=== PATIENT | male | born 1990 | race Caucasian/White ===

== ENCOUNTER 2018-01-03 23:47 | Emergency (ER) | payer MEDICAID, OTHER ==
[~2018-01-03] VITALS: Ht 172.7 cm; Wt 81.6 kg
[2018-01-03 23:50] VITALS: BP 146/107
[2018-01-03] MEDS ORDERED: NKM (23:53)
[2018-01-04] MEDS ORDERED: CORTISPORIN EAR10 ML RIGHT EAR (00:20)
[2018-01-04] MEDS ORDERED: AUGMENTIN 875-1 EAC1 ORAL (00:20)
--- NOTE | 2018-01-04 00:20 | Emergency Room Report ---
History of Present Illness General Chief Complaint: Earache Source: Patient Present Illness HPI Is a 27-year-old male with significant past medical history. He presents chief complaint right ear pain. Has been on and off problem for couple months. He came in today because increasing pain for the last couple days. No runny nose or congestion. No fever chills. Decreased hearing. Pain is 7 out of 10. Allergies: Coded Allergies: No Known Allergies (Unverified , 01/03/18) Patient History Past Medical History: see triage record, old chart reviewed Past Surgical History: none Pertinent Family History: none Social History: Denies: smoking Immunizations: other Reviewed Nursing Documentation: PMH: Agreed; PSxH: Agreed Nursing Documentation-PMH Past Medical History: No Stated History Review of Systems Eye: Denies: eye pain, blurred vision ENT: Reports: ear pain; Denies: nose congestion, throat swelling Respiratory: Denies: cough, shortness of breath Cardiovascular: Denies: chest pain, palpitations Gastrointestinal: Denies: abdominal pain, diarrhea, nausea, vomiting Musculoskeletal: Denies: back pain, joint pain Skin: Denies: rash Neurological: Denies: headache, numbness Endocrine: Denies: increased thirst, increased urine Hematologic/Lymphatic: Denies: easy bruising All Other Systems: negative except mentioned in HPI Physical Exam Vital Signs Date Time Temp Pulse Resp B/P (MAP) Pulse Ox O2 Delivery O2 Flow Rate FiO2 01/03/18 23:48 98.2 91 18 146/107 98 Room Air 98.2 vitals with high blood pressure Sp02 EP Interpretation: reviewed, normal General Appearance: well appearing, no apparent distress, alert Head: normocephalic, atraumatic Eyes: bilateral eye PERRL, bilateral eye EOMI ENT: hearing grossly normal, normal pharynx, other - right ear canal obstructed with cerumen Neck: full range of motion, supple, no meningismus Respiratory: chest non-tender, lungs clear, normal breath sounds Cardiovascular #1: regular rate, rhythm, no murmur Gastrointestinal: normal bowel sounds, non tender, no mass, no organomegaly, no bruit, non-distended Musculoskeletal: back normal, gait/station normal, normal range of motion Psychiatric: mood/affect normal Skin: warm/dry Procedures Additional Procedure Procedure Narrative Procedure: Cerumen disimpaction Indication: Cerumen impaction Description: I irrigated canal with normal saline. Using an ear curette I was able to remove a large cerumen. On recheck, canal show erythema and TM is red and bulging. No perforation. Patient tolerated procedure without a problem. Medical Decision Making Diagnostic Impression: Primary Impression: Right acute otitis media Additional Impressions: Right otitis externa Qualified Codes: H60.501 - Unspecified acute noninfective otitis externa, right ear Impacted cerumen of right ear ER Course Patient with cerumen impaction. He does have an otitis media and otitis externa. We'll treat for both. No perforation. We'll discharge home. Last Vital Signs Date Time Temp Pulse Resp B/P (MAP) Pulse Ox O2 Delivery O2 Flow Rate FiO2 01/03/18 23:50 98.2 91 18 146/107 98 Room Air 98.2 Status: improved Disposition: HOME, SELF-CARE Condition: Stable Scripts Neomycin/Polymyxin B Sulf/Hc* (CORTISPORIN EAR SOLUTION*) 10 Ml Solution 4 DROP RIGHT EAR QID, #10 ML 0 Refills Prov: AGUEDA MADDEN M.D. 01/04/18 Amoxicillin/Potassium Clav 875-125* (AUGMENTIN 875-125 TABLET*) 1 Each Tablet 1 TAB ORAL TWICE A DAY, #14 TAB Prov: AGUEDA MADDEN M.D. 01/04/18 Referrals: NON PHYSICIAN (PCP) Patient Instructions: Otitis Media, Adult, [id number] Additional Instructions: Follow-up your doctor in 7 days. If symptoms don't improve you may need referral to see ENT doctor. Return if worse. AGUEDA MADDEN M.D. January 04, 2018 00:20
[2018-01-04 00:26] VITALS: BP 146/107
== END 2018-01-04 00:28 | disposition home or self-care (01) ==
LOC: EMR 01-04 00:16
DX: H66.91 Otitis media, unspecified, right ear (principal); H60.91 Unspecified otitis externa, right ear; H61.21 Impacted cerumen, right ear
CPT/HCPCS: 69210; 99284

== ENCOUNTER → 2018-06-01 | Emergency (ER) | payer MEDICAID ==
[~2018-06-01] VITALS: Ht 172.7 cm; Wt 81.6 kg
[~2018-06-01] MED LIST: ANUSOL-HC30 GM RC; AUGMENTIN 875-1 EAC1 ORAL; COLACE100 MG ORAL; CORTISPORIN EAR10 ML RIGHT EAR; NKM
--- NOTE | 2018-06-01 23:22 | Emergency Room Report ---
History of Present Illness General Chief Complaint: Constipation Source: Patient Present Illness HPI Patient present with complaints of pain in the rectal area He reports that he has been constipated and straining Over the past one day he noticed blood when he wiped on the toilet paper Denies any vomiting denies any abdominal pain Denies any chest pain or shortness of breath Denies any dysuria frequency denies any trauma Allergies: Coded Allergies: No Known Allergies (Unverified , 01/03/18) Patient History Past Medical History: see triage record Pertinent Family History: none Reviewed Nursing Documentation: PMH: Agreed; PSxH: Agreed Nursing Documentation-PMH Past Medical History: No History, Except For Hx Hypertension: Yes Review of Systems All Other Systems: negative except mentioned in HPI Physical Exam Vital Signs Date Time Temp Pulse Resp B/P (MAP) Pulse Ox O2 Delivery O2 Flow Rate FiO2 06/01/18 23:00 98.5 108 20 152/99 100 Room Air 98.4 Sp02 EP Interpretation: reviewed, normal General Appearance: well appearing, no apparent distress Head: normocephalic, atraumatic Eyes: bilateral eye PERRL, bilateral eye EOMI ENT: normal pharynx Neck: supple Respiratory: lungs clear Cardiovascular #1: regular rate, rhythm Gastrointestinal: non tender, soft Rectal: other - Two small hemorrhoids and possibly 3 and 6:00 there is also a small fissure in between that region no active hemorrhage Musculoskeletal: normal inspection Neurologic: alert, oriented x3 Skin: normal color, no rash Medical Decision Making Diagnostic Impression: Primary Impression: Hemorrhoid Additional Impression: Rectal fissure ER Course Given the exam and findings Consistent with small fissure, non-complicated along with hemorrhoids patient is provided with medications And stool softeners and requires close outpatient follow-up Last Vital Signs Date Time Temp Pulse Resp B/P (MAP) Pulse Ox O2 Delivery O2 Flow Rate FiO2 06/01/18 23:00 98.5 108 20 152/99 100 Room Air 98.4 Status: unchanged Disposition: HOME, SELF-CARE Condition: Stable Additional Instructions: Patient is provided with the discharge instructions notified to follow up with primary doctor in the next 2-3 days otherwise return to the er with any worsening symptoms. Please note that this report is being documented using [employer] technology. This can lead to erroneous entry secondary to incorrect interpretation by the dictating instrument. Amy Mejia DO Jun 01, 2018 23:22
[2018-06-01 23:38] VITALS: BP 152/99
== END | disposition home or self-care (01) ==
LOC: EMR 23:14
DX: K64.9 Unspecified hemorrhoids (principal); K60.2 Anal fissure, unspecified; K59.00 Constipation, unspecified; I10 Essential (primary) hypertension
CPT/HCPCS: 99282

== ENCOUNTER 2018-06-15 23:23 | Emergency (ER) | payer MEDICAID ==
[~2018-06-15] VITALS: Ht 172.7 cm; Wt 81.6 kg
[2018-06-15 23:57] VITALS: BP 131/96
[2018-06-16] MEDS ORDERED: TRAMADOL HCL50 MG ORAL (00:08)
--- NOTE | 2018-06-16 00:08 | Emergency Room Report ---
History of Present Illness General Chief Complaint: Pain Source: Patient Present Illness HPI Is a 27-year-old male with no severe with aspiration. He presents with chief complaint of upper back pain is been ongoing for a week. Pain is on and off. Sharp in nature. Radiating to the neck. Worse with certain movement. 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 Denies any other complaint. No trauma. No fever chills. No incontinence of bowel or urine. Pain is 7 out of 10. No relief with Motrin. Allergies: Coded Allergies: No Known Allergies (Unverified , 06/15/18) Patient History Past Medical History: see triage record, old chart reviewed Past Surgical History: none Pertinent Family History: none Social History: Denies: smoking Immunizations: other Reviewed Nursing Documentation: PMH: Agreed; PSxH: Agreed Nursing Documentation-PMH Past Medical History: No History, Except For Hx Hypertension: Yes Review of Systems Eye: Denies: eye pain, blurred vision ENT: Denies: ear pain, nose congestion, throat swelling Respiratory: Denies: cough, shortness of breath Cardiovascular: Denies: chest pain, palpitations Gastrointestinal: Denies: abdominal pain, diarrhea, nausea, vomiting Musculoskeletal: Reports: back pain; Denies: joint pain Skin: Denies: rash Neurological: Denies: headache, numbness Endocrine: Denies: increased thirst, increased urine Hematologic/Lymphatic: Denies: easy bruising All Other Systems: negative except mentioned in HPI Physical Exam Vital Signs Date Time Temp Pulse Resp B/P (MAP) Pulse Ox O2 Delivery O2 Flow Rate FiO2 06/15/18 23:50 98.3 80 16 131/96 96 Room Air 98.2 vitals normal Sp02 EP Interpretation: reviewed, normal General Appearance: well appearing, no apparent distress, alert Head: normocephalic, atraumatic Eyes: bilateral eye PERRL, bilateral eye EOMI ENT: hearing grossly normal, normal pharynx Neck: full range of motion, supple, no meningismus Respiratory: chest non-tender, lungs clear, normal breath sounds Cardiovascular #1: regular rate, rhythm, no murmur Gastrointestinal: normal bowel sounds, non tender, no mass, no organomegaly, no bruit, non-distended Musculoskeletal: back normal - upper back tenderness mostly neck and upper thoracic., gait/station normal, normal range of motion Psychiatric: mood/affect normal Skin: warm/dry Medical Decision Making Diagnostic Impression: Primary Impression: Strain of muscle and tendon of back wall of thorax, initial encounter ER Course Patient presents with muscle strain. No evidence of any fracture. No evidence of mass, PE, dissection to name a few. We'll discharge home. Chest X-Ray Diagnostic Results Chest X-Ray Diagnostic Results : Chest X-Ray Ordered: Yes # of Views/Limited/Complete: 1 View Indication: Chest Pain EP Interpretation: Yes Interpretation: no consolidation, no effusion, no pneumothorax, no acute cardiopulmonary disease Impression: No acute disease Electronically Signed by: Jamal Peterson MD Last Vital Signs Date Time Temp Pulse Resp B/P (MAP) Pulse Ox O2 Delivery O2 Flow Rate FiO2 06/15/18 23:57 98.2 80 16 131/96 96 Room Air 98.2 Status: improved Disposition: HOME, SELF-CARE Condition: Stable Scripts Tramadol Hcl* (ULTRAM*) 50 Mg Tablet 50 MG ORAL Q6H PRN for For Pain, #20 TAB 0 Refills Prov: Jamal Peterson MD 06/16/18 Additional Instructions: Follow-up with your doctor in 7 days. Return if worse. No heavy lifting. Jamal Peterson MD Jun 16, 2018 00:08
[2018-06-16] MEDS ORDERED: Norco 5mg/325mg tab ORAL ONE (00:15)
[2018-06-16 00:34] VITALS: BP 131/96
--- NOTE | 2018-06-16 10:39 | Diagnostic Imaging Report ---
Indication: Chest pain Comparison: None A single view chest radiograph was obtained. Findings: Cardiomediastinal appearance is within normal limits for age. The lungs are clear. Pulmonary vascularity is appropriate. The diaphragmatic contour is smooth and costophrenic angles are sharp. No pleural effusions are identified. The bones are unremarkable. Impression: No acute findings
== END 2018-06-16 00:34 | disposition home or self-care (01) ==
LOC: EMR 23:59
DX: S29.012A Strain of muscle and tendon of back wall of thorax, initial encounter (principal); X50.3XXA Overexertion from repetitive movements, initial encounter; X50.0XXA Overexertion from strenuous movement or load, initial encounter; Y93.89 Activity, other specified; Y92.89 Other specified places as the place of occurrence of the external cause; I10 Essential (primary) hypertension
CPT/HCPCS: 71045; 99283